=== PATIENT | male | born 1990 | race Caucasian/White ===

== ENCOUNTER 2017-11-19 18:03 | Emergency (ER) | payer OTHER ==
[~2017-11-19] VITALS: Ht 167.6 cm; Wt 85.3 kg
[2017-11-19 18:10] VITALS: Ht 167.6 cm; Wt 85.3 kg
[2017-11-19 18:28] VITALS: BP 130/85
== END 2017-11-19 18:29 | disposition other institution (70) ==
LOC: ED 18:03 → EDBD 18:03 → ED 18:29
DX: Z02.89 Encounter for other administrative examinations (principal)